=== PATIENT | female | born 1960 | race Caucasian/White ===

== ENCOUNTER → 2016-08-27 | Outpatient (CLI) | payer BC ==
[~2016-08-27] MED LIST: BCPILLS; FAMO20TA11; GLC500; IBUP-1050; LISI-461; SNG10
[2016-08-27 09:57] LABS: ESTIMATED AVERAGE GLUCOSE 103 mg/dl; HA1C FLAG Normal (Normal)
[2016-08-27 10:04] LABS: BLOOD UREA NITROGEN 20 mg/dl (7-18); BUN/CREATININE RATIO 28.2 (10-20); CALCIUM 9.2 mg/dl (8.5-10.1); CARBON DIOXIDE 24 mmol/L (21-32); CHLORIDE 109 mmol/L (98-107); CREATININE 0.71 mg/dl (0.60-1.20); GLUCOSE 92 mg/dl (70-99); POTASSIUM 4.2 mmol/L (3.5-5.1); SODIUM 143 mmol/L (136-145)
== END | disposition home or self-care (01) ==
LOC: C.LAB 07:53
DX: E11.9 Type 2 diabetes mellitus without complications (principal)

== ENCOUNTER → 2017-02-14 | Outpatient (CLI) | payer BC ==
[2017-02-14 12:09] LABS: BASO % 0.2 %; BASO ABS # 0.02 K/uL (0-0.2); COMPLETE YES; EOS % 1.9 %; HEMATOCRIT 42.5 % (37-47); IG% 0.2 %; LYMPH % 22.2 %; LYMPH ABS # 1.79 K/uL (1.2-3.4); MEAN CELL VOLUME 91.6 fL (80-100); MEAN CORPUSCULAR HGB CONC 33.9 g/dl (32-36); MEAN PLATELET VOLUME 8.7 fL (7.4-10.4); MONO % 7.6 %; NEUT % 67.9 %; PLATELET COUNT 307 K/uL (130-400); RED BLOOD COUNT 4.64 M/uL (4.2-5.4); WHITE BLOOD COUNT 8.07 K/uL (4.8-10.8)
[2017-02-14 12:33] LABS: ALT/SGPT 17 U/L (12-78); AST/SGOT 8 U/L (15-37); BLOOD UREA NITROGEN 20 mg/dl (7-18); BUN/CREATININE RATIO 22.7 (10-20); CALCIUM 9.4 mg/dl (8.5-10.1); CARBON DIOXIDE 25 mmol/L (21-32); CHLORIDE 107 mmol/L (98-107); CHOLESTEROL 151 mg/dl (0-200); CREATININE 0.86 mg/dl (0.60-1.20); GLUCOSE 93 mg/dl (70-99); POTASSIUM 4.7 mmol/L (3.5-5.1); SODIUM 140 mmol/L (136-145); TRIGLYCERIDES 90 mg/dl (0-150); VERY LOW DENSITY LIPOPROT CALC 18 mg/dl
[2017-02-14 12:39] LABS: ESTIMATED AVERAGE GLUCOSE 108 mg/dl; HA1C FLAG Normal (Normal)
[2017-02-14 12:43] LABS: CHOLESTEROL/HDL RATIO 3.8; HDL CHOLESTEROL 40 mg/dl; LDL CHOLESTEROL CALCULATED 93 mg/dl
== END | disposition home or self-care (01) ==
LOC: C.LAB 11:08
DX: E03.9 Hypothyroidism, unspecified (principal); E11.9 Type 2 diabetes mellitus without complications; E55.9 Vitamin D deficiency, unspecified

== ENCOUNTER → 2017-05-06 | Outpatient (CLI) | payer BC ==
[2017-05-06 10:00] LABS: BLOOD UREA NITROGEN 15 mg/dl (7-18); BUN/CREATININE RATIO 19.9 (10-20); CALCIUM 9.3 mg/dl (8.5-10.1); CARBON DIOXIDE 26 mmol/L (21-32); CHLORIDE 108 mmol/L (98-107); CREATININE 0.76 mg/dl (0.60-1.20); GLUCOSE 69 mg/dl (70-99); POTASSIUM 4.9 mmol/L (3.5-5.1); SODIUM 142 mmol/L (136-145)
[2017-05-06 10:09] LABS: RATIO 8.5 mcg/mg (0-30.0)
== END | disposition home or self-care (01) ==
LOC: C.LAB 07:09
DX: E11.9 Type 2 diabetes mellitus without complications (principal); E55.9 Vitamin D deficiency, unspecified

== ENCOUNTER → 2017-10-14 | Outpatient (CLI) | payer BC ==
[2017-10-14 09:34] LABS: BASO % 0.5 %; BASO ABS # 0.04 K/uL (0-0.2); EOS % 2.4 %; EOS ABS # 0.18 K/uL (0-0.5); HEMATOCRIT 41.4 % (37-47); IG# 0.02 K/uL (0.00-0.02); LYMPH % 24.5 %; LYMPH ABS # 1.85 K/uL (1.2-3.4); MEAN CORPUSCULAR HEMOGLOBIN 31.5 pg (25-34); MEAN CORPUSCULAR HGB CONC 33.8 g/dl (32-36); MEAN PLATELET VOLUME 9.3 fL (7.4-10.4); MONO % 7.4 %; MONO ABS # 0.56 K/uL (0.11-0.59); NEUT % 64.9 %; PLATELET COUNT 290 K/uL (130-400); RED CELL DISTRIBUTION WIDTH CV 13.6 % (11.5-14.5); RED CELL DISTRIBUTION WIDTH SD 46.3 fL (36.4-46.3); WHITE BLOOD COUNT 7.55 K/uL (4.8-10.8)
[2017-10-14 10:11] LABS: ALT/SGPT 17 U/L (12-78); AST/SGOT 9 U/L (15-37); BLOOD UREA NITROGEN 21 mg/dl (7-18); CALCIUM 9.2 mg/dl (8.5-10.1); CARBON DIOXIDE 27 mmol/L (21-32); CHOLESTEROL 160 mg/dl (0-200); CREATININE 0.91 mg/dl (0.60-1.20); GLUCOSE 129 mg/dl (70-99); SODIUM 141 mmol/L (136-145)
[2017-10-14 10:21] LABS: LDL CHOLESTEROL CALCULATED 101 mg/dl
== END | disposition home or self-care (01) ==
LOC: C.LAB 07:06
DX: E11.9 Type 2 diabetes mellitus without complications (principal); E78.5 Hyperlipidemia, unspecified; I10 Essential (primary) hypertension; E03.9 Hypothyroidism, unspecified

== ENCOUNTER → 2017-10-17 | Outpatient (CLI) | payer BC ==
[2017-10-21 09:08] LABS: ANA SCREEN TC 249X NEGATIVE (NEGATIVE)
== END | disposition home or self-care (01) ==
LOC: C.LAB 16:01
DX: G62.9 Polyneuropathy, unspecified (principal)

== ENCOUNTER 2020-12-13 07:55 | Observation (INO) ==
--- NOTE | 2020-11-14 15:46 | PAT Medication Instructions ---
Medication Instructions Date of Service November 14, 2020 Home Medications Medication Instructions Recorded flash glucose sensor #1 ea 10/06/20 blood sugar diagnostic #300 ea 10/27/20 famotidine 40 mg tablet 40 mg PO QPM cholecalciferol (vitamin D3) 50 mcg (2,000 unit) capsule 50 mcg PO QAM levothyroxine 100 mcg capsule 100 mcg PO QAM lisinopril 10 mg tablet 10 mg PO QAM metformin 1,000 mg tablet 1,000 mg PO BID montelukast 10 mg tablet 10 mg PO QAM rosuvastatin 5 mg tablet 5 mg PO QPM hydroxychloroquine 200 mg tablet 200 mg PO BID lutein 10 mg tablet 10 mg PO QAM pantoprazole 40 mg tablet,delayed release 40 mg PO QAM sertraline 100 mg tablet 100 - 150 mg PO QAM clonidine HCl 0.1 mg tablet 0.1 mg PO HS triamcinolone acetonide 0.5 % topical cream 1 applic TOPICAL DAILY PRN aspirin [Aspir-81] 81 mg PO QAM ibuprofen [Advil] 600 mg PO Q6H insulin glargine [Lantus Solostar U-100 Insulin] 35 unit SUBCUT QPM liraglutide [Victoza 2-Nish] 0.6 mg SUBCUT QAM Continue as directed liraglutide [Victoza 2-Nish] 0.6 mg SUBCUT QAM ASK your surgeon for instructions ibuprofen [Advil] 600 mg PO Q6H ASK your prescriber and surgeon hydroxychloroquine 200 mg tablet 200 mg PO BID STOP taking 24 hours before surgery triamcinolone acetonide 0.5 % topical cream 1 applic TOPICAL DAILY PRN DO NOT take the morning of surgery cholecalciferol (vitamin D3) 50 mcg (2,000 unit) capsule 50 mcg PO QAM lisinopril 10 mg tablet 10 mg PO QAM metformin 1,000 mg tablet 1,000 mg PO BID montelukast 10 mg tablet 10 mg PO QAM lutein 10 mg tablet 10 mg PO QAM Take morning of surgery With a small sip of water, OTHERWISE NOTHING TO EAT OR DRINK AFTER MIDNIGHT: levothyroxine 100 mcg capsule 100 mcg PO QAM pantoprazole 40 mg tablet,delayed release 40 mg PO QAM sertraline 100 mg tablet 100 - 150 mg PO QAM aspirin [Aspir-81] 81 mg PO QAM Take evening before surgery famotidine 40 mg tablet 40 mg PO QPM metformin 1,000 mg tablet 1,000 mg PO BID rosuvastatin 5 mg tablet 5 mg PO QPM clonidine HCl 0.1 mg tablet 0.1 mg PO HS insulin glargine [Lantus Solostar U-100 Insulin] 35 unit SUBCUT QPM Other Notes If you have any questions please call us at [phone] or [phone] or [phone] or [phone]
--- NOTE | 2020-11-16 08:42 | Anesthesiology Consultation ---
Date of Service November 16, 2020 Assessment & Plan (1) Encounter for pre-operative examination: - COVID screening: Per assessment on 11/16: Travel screen- Traveled to [place], [place]- returned 11/11. Rented condo with 3 people (All vaccinated). No further travel planned to surgery. 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 No known COVID-19 positive contacts or current COVID-19 related symptoms. Patient fully vaccinated. Surgeon arranging preop COVID testing. Awaiting results. - Check BSG AM DOS Chart Review Chart Review: Acceptable Risk for Surgery and Patient seen in Pre Admission Testing Teaching & Discussion Pre-Anesthesia Teaching/Discussion Notes: Instructed NPO after midnight before surgery,except medications with 15 cc of water. Medication instructions provided according to the PAT guidelines. History Surgery Operation Date: 12/13/20 09:05 Proposed Procedures p Right Total Knee Replacement - Hossein Thakkar MD Height/Weight Height: 5 ft 4 in Weight: 133.1 kg Allergies Allergy/AdvReac Type Severity Reaction Status Date / Time morphine Allergy Severe Severe Verified 11/14/20 15:47 headache pollen extracts Allergy Intermediate Pruritus, Verified 11/14/20 15:47 watery eyes, sneezing, congestion, cough Penicillins Allergy Unknown "Strong Verified 11/14/20 15:47 family history" ciprofloxacin [From Cipro] AdvReac Unknown Yeast Verified 11/14/20 10:44 infection Medications Home Medications Medication Instructions Recorded Confirmed Last Taken famotidine 40 mg tablet 40 mg PO QPM 08/02/20 11/14/20 Unknown cholecalciferol (vitamin D3) 50 50 mcg PO QAM 10/04/20 11/14/20 Unknown mcg (2,000 unit) capsule levothyroxine 100 mcg capsule 100 mcg PO QAM 10/04/20 11/14/20 Unknown lisinopril 10 mg tablet 10 mg PO QAM 10/04/20 11/14/20 Unknown metformin 1,000 mg tablet 1,000 mg PO BID tab 10/04/20 11/14/20 Unknown montelukast 10 mg tablet 10 mg PO QAM 10/04/20 11/14/20 Unknown pen needle, diabetic 32 gauge x #50 ea 10/04/20 11/02/20 Unknown " rosuvastatin 5 mg tablet 5 mg PO QPM 10/04/20 11/14/20 Unknown flash glucose sensor #1 ea 10/06/20 11/02/20 Unknown hydroxychloroquine 200 mg tablet 200 mg PO BID 10/06/20 11/14/20 Unknown pantoprazole 40 mg tablet,delayed 40 mg PO QAM 10/06/20 11/14/20 Unknown release sertraline 100 mg tablet 100 - 150 mg PO QAM 10/06/20 11/14/20 Unknown blood sugar diagnostic #300 ea 10/27/20 11/02/20 Unknown clonidine HCl 0.1 mg tablet 0.1 mg PO HS tab 10/27/20 11/14/20 Unknown triamcinolone acetonide 0.5 % 1 applic TOPICAL DAILY PRN 10/27/20 11/14/20 Unknown topical cream aspirin [Aspir-81] 81 mg PO QAM 11/14/20 11/14/20 Unknown ibuprofen [Advil] 600 mg PO Q6H 11/14/20 11/14/20 Unknown insulin glargine [Lantus Solostar 35 unit SUBCUT QPM 11/14/20 11/14/20 Unknown U-100 Insulin] liraglutide [Victoza 2-Nish] 0.6 mg SUBCUT QAM 11/14/20 11/14/20 Unknown lutein-zeaxanthin 1 cap PO DAILY 11/16/20 11/16/20 Unknown Past Medical History Medical History Anxiety Depression Diabetes type 2, controlled IDDM Dyslipidemia Gastric ulcer hx GERD (gastroesophageal reflux disease) controlled Hypertension Hypothyroidism Migraine hx Morbid obesity Rheumatoid arthritis Exercise / Class Metabolic Activity III < 4 Walking/Shop/Light housework Past Family History Family History Brother Family history of reaction to anesthesia VERY AGITATED Mother Family history of diabetes mellitus Family/Other Family history of diabetes mellitus Past Surgical History Surgical History History of cholecystectomy History of colonoscopy History of endometrial ablation Past Anesthesia History No Hx of Anesthesia Complications and No Family Hx of Anesthesia Complications (except brother (agitation with anesthesia emergence)) History of PONV No Hx of PONV and Hx of Motion Sickness (mild (boats)) Social History Smoking Status: Never smoker Do You Dip or Chew Tobacco: No Hx Alcohol Use: Yes Alcohol type: hard liquor alcohol intake frequency: holidays/special occasions only Hx Substance Use: No Review of Systems Patient denies chest pain, shortness of breath, dyspnea on exertion, fever, chills, cough, wheezing, palpitations. Physical Exam Vital Signs VITALS BP 112/72 P 65 TEMP 98.2 SP02 95%RA RESP 18 PHYSICAL Full cervical extension range of motion. Full TMJ range of motion. TMD 3.5 finger breaths Mallampati Score 2 (large tongue) Dentition: intact, root canal repair right lower side Lungs: clear throughout to auscultation Cardiac: regular rate and rhythm, no murmurs noted Spine: normal Carotid arteries: negative bruit Extremities: no edema Testing Laboratory Results 11/16/20 09:07 11/16/20 09:07 PT 9.9 Seconds (9.0-12.0) 11/16/20 09:07 INR 1.0 (0.9-1.1) 11/16/20 09:07 APTT 24.6 Seconds (21.0-31.0) 11/16/20 09:07 Hemoglobin A1c 5.9 % (4.5-5.6) H 11/16/20 09:07 Blood Type A Positive 11/16/20 09:07 Antibody Screen NEGATIVE 11/16/20 09:07 Electrocardiogram Date: 11/16/20 Findings: + NSR @ (61) Chest X-Ray Date: 11/16/20 FINDINGS: Lung volumes are normal. Lungs are clear. There is no pneumothorax or pleural effusion. There is mild cardiomegaly. Mediastinal contours are normal. There is no evidence for pulmonary edema. IMPRESSION: No acute cardiopulmonary findings. Mild cardiomegaly. Stress Test Date: 01/05/18 Type: DSE Negative exercise stress echo/ECG for ischemia at 106% MPHR. 5.3 METS. No significant valvular disease. EF 55 to 60%. Borderline DOMO.
--- NOTE | 2020-11-16 09:35 | XRay Report ---
XR chest Pre-admission PA/Lat CLINICAL HISTORY: Preoperative evaluation. COMPARISON STUDY: Chest radiograph January 04, 2018. FINDINGS: Lung volumes are normal. Lungs are clear. There is no pneumothorax or pleural effusion. The re is mild cardiomegaly. Mediastinal contours are normal. There is no evidence for pulmonary edema. IMPRESSION: No acute cardiopulmonary findings. Mild cardiomegaly. ACT 112: Negative or not required by law. Electronically signed by: Fuentes Serna M.D. 11/16/2020 9:34 AM
[2020-11-16 10:47] LABS: BUN Creatinine Ratio 19.3 (10-20); Calcium 9.3 mg/dl (8.5-10.1); Creatinine Clr Calc Pharmacy 105.6 ml/min; Est GFR (African American) 98.1; Est GFR (Non-African American) 84.7; Potassium 4.9 mmol/L (3.5-5.1)
[2020-11-16 10:48] LABS: Basophils # (auto) 0.03 K/uL (0-0.2); Basophils % (auto) 0.3 %; Eosinophils # (auto) 0.21 K/uL (0-0.5); Eosinophils % (auto) 2.4 %; Hematocrit (blood only) 36.8 % (37-47); Hemoglobin 12.3 g/dL (12.0-16.0); Immature Granulocytes # (auto) 0.02 K/uL (0.00-0.02); Immature Granulocytes % (auto) 0.2 %; Lymphocytes # (auto) 1.58 K/uL (1.2-3.4); Mean Corpuscular Hemoglobin 30.8 pg (25-34); Mean Corpuscular Hgb Conc 33.4 g/dL (32-36); Mean Corpuscular Volume 92.2 fL (80-100); Mean Platelet Volume 9.4 fL (7.4-10.4); Neutrophils # (auto) 6.23 K/uL (1.4-6.5); Neutrophils % (auto) 71.1 %; Platelet Count 278 K/uL (130-400); RDW Coefficient of Variation 13.9 % (11.5-14.5); RDW Standard Deviation 46.9 fL (36.4-46.3); Red Blood Count 3.99 M/uL (4.2-5.4); White Blood Count 8.77 K/uL (4.8-10.8)
[2020-11-16 10:53] LABS: Partial Thromboplastin Ratio 0.9; Partial Thromboplastin Time 24.6 Seconds (21.0-31.0); Prothrombin Time 9.9 Seconds (9.0-12.0)
[2020-11-16 10:54] LABS: Estimated Average Glucose 123 mg/dl; Hemoglobin A1C 5.9 % (4.5-5.6)
--- NOTE | 2020-11-17 06:28 | Electrocardiogram Report ---
Test Reason : Blood Pressure : / mmHG Vent. Rate : 061 BPM Atrial Rate : 061 BPM P-R Int : 158 ms QRS Dur : 080 ms QT Int : 424 ms P-R-T Axes : 059 009 039 degrees QTc Int : 426 ms Normal sinus rhythm Normal ECG When compared with ECG of 05-JAN-2018 06:38, No significant change was found Confirmed by Kareem Collier ([id number]) on 11/17/2020 6:27:44 AM Referred By: Hossein Thakkar Confirmed By:Kaerem Collier
--- NOTE | 2020-12-07 21:20 | History and Physical Report ---
DATE OF ADMISSION: 12/13/2020 CHIEF COMPLAINT: Bilateral knee pain and discomfort, right side greater than left. HISTORY OF PRESENT ILLNESS: The patient is a 60-year-old female referred by my partner, Dr. Yap, for treatment of her knees. She has got a 6-8 month history of markedly increasing bilateral knee pain and discomfort, right side worse than the left. She had an injection, which helped for about 4 weeks. Pain is increased with weightbearing. She pretty much limps all the time. Gets more sore and tired at the end of the day. Takes Advil with little relief. It gives out intermittently. She would like to have her knees fixed. PAST MEDICAL HISTORY: Significant for, 1. Diabetes x15 years with an A1c of 5.9. 2. Hypertension. 3. Anxiety/depression. 4. Sleep apnea. 5. Hypothyroidism. 6. Obesity with BMI of 50. 7. Gastroesophageal reflux disease. 8. Low back pain/sciatica. PAST SURGICAL HISTORY: Includes, 1. Cholecystectomy. 2. Uterine ablation. ALLERGIES: MORPHINE, WHICH CAUSES A HEADACHE. ALSO DESCRIBES ALLERGIES TO PENICILLIN AND CIPRO. CURRENT MEDICATIONS: Include, 1. Aspirin 81 mg. 2. Vitamin D3. 3. Clonidine. 4. Famotidine. 5. Hydroxychloroquine. 6. Insulin. 7. Levothyroxine. 8. Victoza. 9. Lisinopril. 10. Lutein. 11. Metformin. 12. Singulair. 13. Crestor. 14. Sertraline. 15. Triamcinolone topical cream. SOCIAL HISTORY: A 60-year-old female. Lives in [place]. She has a domestic partner. Rare alcohol intake. No children. FAMILY HISTORY: Significant for heart disease. REVIEW OF SYSTEMS: Negative for diabetes. Denies any chest pain or shortness of breath. No history of DVT or PE. No known bleeding problems. PHYSICAL EXAMINATION GENERAL: Shows a pleasant middle-aged female. HEENT: Benign. NECK: Supple, no lymphadenopathy. LUNGS: Clear to auscultation. HEART: Regular rate and rhythm. ABDOMEN: Soft, nontender, nondistended. EXTREMITIES: Grossly neurovascularly intact except as follows: Examination of both knees reveals the patient ambulates with a bit of a limp. Examination of the right knee reveals a large soft tissue envelope. Fairly neutral alignment to her knee. Tender over the medial joint line. Range of motion 5-125. No instability. No pain with hip motion. X-RAYS: X-rays of the right knee were reviewed. It shows advanced right knee DJD. She has complete loss of the medial joint space. She has got a tibial femoral subluxation. She has got osteophytes primarily medially, but some lateral compartment osteophytes. Mild to moderate patellofemoral disease. ASSESSMENT: A 60-year-old female with multiple comorbidities including underlying diabetes, hypertension, hypothyroidism, obesity, gastroesophageal reflux disease and sciatica with advanced right knee degenerative joint disease. She has failed conservative measures. She would like to have her right knee fixed. PLAN: We will take her to the operating room and do right total knee replacement. The risks and benefits of this procedure were explained to the patient and include but not limited to DVT, PE, , infection, neurological injury, vascular injury, bleeding problem, pain, limited range of motion, stiffness, failure to relieve her symptoms, incomplete relief of symptoms, need for further surgery in the future, fracture, leg length inequality, nerve palsy, need for blood transfusion, etc. The patient understands and desires to proceed. Informed consent was obtained. We will need to hold her metformin and lisinopril on the morning of surgery. She is planning to be discharged home using [facility] home health program. She does have a domestic partner who can help with her care.
[~2020-12-13 07:55] MED LIST changes: +ACETAMINOPHEN 500 MG TAB PO SCH; -BCPILLS; +BUPIVACAINE 0.25% 30 ML VIAL ONE; +BUPIVACAINE 0.5 % 5 MG/1 ML PF 10ML VIAL ONE; +BUPIVACAINE LIPOSOME/PF 266 MG, BUPIVACAINE/EPINEPHRINE 50 ML, SODIUM CHLORIDE 0.9% 30 ... INFIL SCH; -FAMO20TA11; +FAMOTIDINE 20 MG TAB PO SCH; +GABAPENTIN 600 MG DOSE PO SCH; -GLC500; -IBUP-1050; -LISI-461; +LR 500ML BOLUS, THEN 15ML/HR IV SCH; +LR 60ML/HR IV SCH; -SNG10; +Scopolamine 1 MG TDSY TD SCH; +TRANEXAMIC ACID 1,000 MG **IV Intra-op IV SCH
--- NOTE | 2020-12-13 08:51 | History & Physical Bridge Note ---
Date of Service December 13, 2020 History & Physical Bridge Note I have examined the patient, reviewed the History & Physical and in the interval since the performance of the History & Physical I have noted the following changes of clinical significance: no changes noted
[2020-12-13] MEDS ORDERED: MIDAZOLAM HCL 1 MG/ML 2ML VIAL ONE ×2 (09:19)
[2020-12-13] MEDS ORDERED: fentaNYL citrate 100 MCG/2 ML VIAL IV PRN (09:37)
[2020-12-13] MEDS ORDERED: ATROPINE SULFATE 0.1 MG/ML 10ML SYR IV PRN (09:37)
[2020-12-13] MEDS ORDERED: ONDANSETRON INJ 2 MG/ML 2 ML VIAL IV PRN ×2 (09:37→13:50)
[2020-12-13] MEDS ORDERED: ePHEDrine sulfate 50 MG/ML AMP IV PRN (09:37)
[2020-12-13] MEDS ORDERED: BUPIVACAINE LIPOSOME 1.3% 266 MG/20 ML VIAL ONE (10:15)
[2020-12-13] MEDS ORDERED: EPINEPHrine INJ 1 MG/ML AMP ONE (10:17)
[2020-12-13] MEDS ORDERED: BUPIVACAINE 0.25% 30 ML VIAL ONE ×2 (10:17→10:25)
[2020-12-13] MEDS ORDERED: SODIUM CHLORIDE 0.9% PF 50 ML VIAL ONE (10:26)
[2020-12-13] MEDS ORDERED: PHENYLEPHRINE 100MCG/ML 5ML SYR ONE (10:59)
[2020-12-13] MEDS ORDERED: ePHEDrine sulfate 50 MG/ML SYR ONE (10:59)
[2020-12-13] MEDS ORDERED: LIDOCAINE HCL 2% 2 ML VIAL/AMP(20MG/ML) INFIL ONE (10:59)
[2020-12-13] MEDS ORDERED: PROPOFOL IV EMULSION 10 MG/ML 20 ML VIAL IV ONE ×2 (10:59→11:47)
--- NOTE | 2020-12-13 12:21 | Post Operative Brief Note ---
PG Immediate Post Op with CF Date of Surgery December 13, 2020 Pre & Post Diagnosis Operation Date: 12/13/20 10:05 Pre-Op Diagnosis: Right Knee Osteoarhritis Post-Op Diagnosis: Right Knee Osteoarhritis I identified the patient and participated in the time-out.: Yes Procedure Operation Date: 12/13/20 10:05 Actual Procedures p Right Total Knee Replacement(Right) - Hossein Thakkar MD Surgeon Hossein Thakkar MD Debarker Operator ANNY Mathew Estimated Blood Loss 50 Findings Consistent with Post-Op Diagnosis Fluids 1700 cc Specimens Specimen Description: A) Right knee- bone & tissue Drains Gaspar Catheter Anesthesia Type Spinal MAC Complications none Disposition Accompanied Patient To Recovery: No Disposition: Recovery Room
--- NOTE | 2020-12-13 13:10 | XRay Report ---
XR knee RT 1 or 2V routine CLINICAL HISTORY: Surgical Post Op COMPARISON: None. DISCUSSION: There are postsurgical changes of a total right knee arthroplasty and patellar resurfacin g. No acute fractures are visualized. There is an old proximal fibular deformity. There are overlying skin rory. There is gas within the soft tissues consistent with recent surgery. The femoral and t ibial components appear well seated. IMPRESSION: Postsurgical changes of a total right knee arthroplasty. ACT 112: Negative or not required by law. Electronically signed by: Ryan Branch M.D. 12/13/2020 1:09 PM
--- NOTE | 2020-12-13 13:23 | Anesthesiology Progress Note ---
Date of Service December 13, 2020 Anesthesia Post Procedure Vital Signs Vital Signs: Temp Pulse Pulse Resp BP BP Pulse Ox 12/13/20 13:05 59 L 16 140/69 98 12/13/20 12:55 58 L 16 120/71 99 12/13/20 12:45 36.4 C L 60 16 148/64 H 98 12/13/20 12:35 61 16 140/53 L 98 12/13/20 12:25 71 16 130/64 100 12/13/20 12:19 36.2 C L 75 16 116/56 L 100 12/13/20 08:29 36.6 C 65 18 116/50 L 95 Pain Intensity Right Knee: Pain Intensity: 2 Transfer of Care Handoff Completed per policy Notes Mental Status: alert / awake / arousable and participated in evaluation Patient Amnestic to Procedure: Yes Nausea / Vomiting: adequately controlled Pain: adequately controlled Airway Patency, RR, SpO2: stable & adequate BP & HR: stable & adequate Hydration State: stable & adequate Neuraxial Anesthesia: was administered and sensory block is resolving Anesthetic Complications: no major complications apparent and Pt Satisfied with anesthetic care
[2020-12-13] MEDS: SODIUM CHLORIDE 0.9% 1000ML 1,000 ML IV SCH ×2 (13:40→20:33)
[2020-12-13] MEDS ORDERED: METOCLOPRAMIDE HCL INJ 5 MG/ML 2 ML VIAL IV PRN (13:50)
[2020-12-13] MEDS ORDERED: bisacodyL 10 MG SUPP PR PRN (13:50)
[2020-12-13] MEDS ORDERED: GLUCAGON FOR INJ 1 MG VIAL SQ PRN (13:50)
[2020-12-13] MEDS ORDERED: MAGNESIUM HYDROXIDE SUSP 30 ML UDC PO PRN (13:50)
[2020-12-13] MEDS ORDERED: TRIAMCINOLONE ACET 0.5% CR 15 GM TUBE TOP PRN (13:50)
[2020-12-13] MEDS ORDERED: oxyCODONE HCL IR 5 MG TAB (IMMEDIATE RELEASE) PO PRN (13:50)
[2020-12-13] MEDS ORDERED: diphenhydrAMINE Capsule 25 MG CAP PO PRN (13:50)
[2020-12-13] MEDS ORDERED: CARBOHYDRATES FOR HYPOGLYCEMIA PO PRN (13:50)
[2020-12-13] MEDS ORDERED: NALOXONE HCL 0.4 MG/1 ML VIAL/CARP IV PRN (13:50)
[2020-12-13] MEDS ORDERED: ALUMINUM/MAGNESIUM SUSP 30 ML UDC PO PRN (13:50)
[2020-12-13] MEDS ORDERED: DEXTROSE 50% 50 ML SYRINGE IV PRN (13:50)
[2020-12-13] MEDS ORDERED: GLUCOSE 10 TABS/TUBE PO PRN (13:50)
[2020-12-13] MEDS ORDERED: GLUCOSE 40% GEL 15 GM TUBE PO PRN (13:50)
[2020-12-13] MEDS ORDERED: PHARMACY GLYCEMIC MGMT CONSULT PRN (14:26)
--- NOTE | 2020-12-13 15:00 | Pharmacy Report ---
Pharmacy Glycemic Short Note 2 - Date of Service December 13, 2020 - Glycemic Short BSG Results (Last 24 hours): 12/13/20 12/13/20 08:19 12:25 POC Glucose 100 H 72 OUTPATIENT ANTIDIABETIC REGIMEN: * Lantus 35 units SQ qPM * Victoza 0.6mg SQ qAM * HbA1c: 5.9% (11/16/20) ASSESSMENT: * Ms Green is a 60yo diabetic female, POD 0 s/p R TKA w/ Dr Thakkar. * Pt does not appear to have received any steroids intraoperatively. * Pt is managed on once-daily basal insulin at home, along with victoza. * Will attempt to keep on once-daily insulin during admission, for ease of transition at discharge. Novolog added to cover hyperglycemia, should BSGs rise. PLAN FOR INPATIENT GLYCEMIC CONTROL: * Hold Victoza * Basal insulin * Lantus 30 units SQ qHS (~15% dose reduction from home dose, as BSGs 100, 72 so far today and A1c 5.9%) * Bolus insulin * NovoLog per scale ACHS or Q6hrs while NPO * Goal Range: Low 120 mg/dL - High 160 mg/dL * Correction Factor: 40 mg/dL/unit * Nutritional / Prandial insulin: none at this time - will be provided by Lantus PLAN FOR DISCHARGE: * A1c: 5.9% * This indicates excellent glycemic control. Expect that pt may resume home regimen on discharge, as long as she does not report having episodes of hypoglycemia.
[2020-12-13] MEDS: KETOROLAC 30 MG/ML VIAL IV SCH ×2 (15:27→18:25)
[2020-12-13] MEDS: ACETAMINOPHEN 500 MG TAB PO SCH ×2 (15:27→21:23)
[2020-12-13] MEDS: Scopolamine CHECK PATCH PLACEMENT SCH (15:28)
[2020-12-13] MEDS: FERROUS GLUCONATE 324 MG TAB PO SCH (16:49)
[2020-12-13] MEDS: ASCORBIC ACID 500 MG TAB PO SCH (16:49)
[2020-12-13] MEDS: INSULIN ASPART 100 UNITS/ML 3 ML PEN SC SCH ×2 (17:10→21:21)
[2020-12-13] MEDS: ceFAZolin 2000MG 2,000 MG/15 ML SYR IV SCH (17:54)
--- NOTE | 2020-12-13 18:12 | Operative Report ---
Post Operative Report Pre & Post Diagnosis Operation Date: 12/13/20 10:05 Pre-Op Diagnosis: Right Knee Osteoarhritis Post-Op Diagnosis: Right Knee Osteoarhritis I identified the patient and participated in the time-out.: Yes Procedure Operation Date: 12/13/20 10:05 Actual Procedures p Right Total Knee Replacement(Right) - Hossein Thakkar MD Surgeon Hossein Thakkar MD Hand Miter Operator ANNY Mathew Estimated Blood Loss 50 Findings Consistent with Post-Op Diagnosis Operative findings revealed advanced right knee DJD. She had grade 4 [id number] disease all 3 compartments most severe in the medial side. She had varus deformity to her knee. Very large soft tissue envelope. Moderate-sized joint effusion. Osteophytes in all 3 compartments. Fluids 1700 cc Specimens Right knee sent for pathology. Drains None. Anesthesia Type Spinal MAC Complications none Disposition Accompanied Patient To Recovery: No Disposition: Recovery Room Indications Patient is a 61-year-old female whose had a several year history of increasing right knee pain discomfort. Is been through extensive conservative treatment which became less successful over time. X-rays were advanced right knee DJD. She elected for surgical treatment. Of note, the patient is morbidly obese with a BMI 50 which made this surgery slightly more difficult and required more time to complete. Description of Procedure Operative implants consist of: 1. Biomet Vanguard size 62.5 right posterior stabilized femoral component. 2. Biomet size 67 tibial tray. 3. 10 mm posterior stabilized polyethylene insert. 4. 31 x 8 all polypatella. The patient was taken to the operating, identified, placed on the operating table supine position protectors were properly padded. IV antibiotics tried by anesthesia team. A spinal anesthetic and abductor canal block had been applied in the holding area. Gaspar catheter was placed in sterile fashion. Right thigh turn was then placed in the right lower extremities and prepped and draped in usual sterile fashion. The right leg was elevated exsanguinated with use of an Esmarch interspace at 300 mmHg. An anterior approach to the right knee was then performed to longitudinal incision centered over the patella. Sharp dissection got through subcutaneous this down the extensor mechanism. A medial parapatellar arthrotomy incision was made. Some subperiosteal dissection was carried out medially. The fat pad was dissected from each patella tendon. Lateral patellofemoral ligament was released. Patella was subluxated laterally and the knee was flexed. The osteophytes were taken off distal femur. The ACL and PCL were then released from distal femur the tibia subluxated anteriorly. The external tibial alignment and placed on the anterior face of the tibia and adjusted 14 mm medially. Proximal tibial cut was made to remove 2 mm of bone from the most deficient aspect medial tibial plateau. The tibia size a size 67. Attention drawn the femur. The distal femur with a sharp drill bit intramedullary canal was suction. A right 5 degree valgus cutting guide was placed. The distal femoral cutting block was pinned in place. Distal femoral cut was made to take an additional 3 mm of bone off distal femur. Femur was then sized to a size 62.5. The 8 cutting block was pinned parallel to the epicondylar axis which was 3 degrees of external rotation. Anterior cut, anterior chamfer, posterior cut, posterior ch amfer cuts were made. Box cutting guide was placed in just slight. The box cut was made to the knee was flexed. The remnants of the medial and lateral menisci were excised. The osteophytes were taken off the posterior aspect the femur. A trial femoral component was placed but the tibial tray was pinned in maximum external rotation and the drill and stem punch were used to create defect in pro ximal tibia for the tibial tray. The knee was then trialed and the 10 mm insert fit most appropriately. Attention drawn the patella. Patella was cleaned of all soft tissues. Patella thickness measured 20 mm in thickness was cut down to 13. Was sized to a size 31 patella. The lug holes were drilled for 31 patella. The lateral osteophyte was removed. Patella button was placed. Knee was taken through range of motion patella tracked nicely with no thumbs test. Attention drawn to place the permanent components. Nupathe all trial components were removed. Bone plug was placed in the distal femur limit blood loss. Double batch Palacos G cement was mixed. A Biomet Vanguard size 62.5 right posterior stabilized femoral component, size 67 tibial tray, 10 mm posterior stabilized polyethylene insert, 31 x 8 all polypatella then cemented in place. The knee was brought out into full extension until cement hardened. Final cement checkup then performed. Pericapsular tissues were injected with total 100 cc of combination of 20 cc cc of Exparel, 30 cc normal saline, 50 cc of quarter percent Marcaine with epinephrine. Patient did receive 1 g tranexamic acid per the turn was then let down for final tourniquet time of 55 minutes. Hemostasis assured use electrocautery. The extensor mechanism closed with combination 1 PDS suture #1 Vicryl suture in [id number] fashion. Extensor mechanism checked found to be intact the subcutaneous tissue then closed with 2 Dexon suture in a buried knot fashion skin was closed skin rory. Leg was then cleaned dried a sterile dressing both Xeroform, 4 x 4's, sterile cast padding, Bobby bandage were applied. Patient then transferred to the recovery room in stable condition. Patient tolerated procedure well there are no complications. Lorenzo Mathew, my physician office assistant receptionist, was present for the entire procedure. His assistance was essential and required for appropriate patient positioning, prepping and draping, surgical exposure, performing the technical details of the operation, placement the implants, closure of the wound, and placement of the sterile bandage. I attest to the content of the Intraoperative Record and any orders documented therein. Any exceptions are noted below.
[2020-12-13] MEDS ORDERED: TRANEXAMIC ACID / 0.7% NACL 1,000 MG/100 ML BAG IV SCH (18:15)
[2020-12-13] MEDS: HYDROXYCHLOROQUINE SULFATE 200 MG TAB PO SCH (20:43)
[2020-12-13] MEDS: TAPENTADOL HCL ER 50 MG TABCR PO SCH (20:43)
[2020-12-13] MEDS: DOCUSATE SODIUM 100 MG CAP PO SCH (20:44)
[2020-12-13] MEDS: ASPIRIN 81 MG ECTAB PO SCH (20:45)
[2020-12-13] MEDS ORDERED: INSULIN GLARGINE SOLOSTAR 100 UNITS/ML 3 ML PEN SQ SCH (21:00)
[2020-12-13] MEDS ORDERED: SENNA 8.6 MG TAB PO SCH (21:00)
[2020-12-13] MEDS ORDERED: cloNIDine HCL 0.1 MG TAB PO SCH (21:00)
[2020-12-13] MEDS ORDERED: ROSUVASTATIN CALCIUM 5 MG TAB PO SCH (21:00)
[2020-12-13] MEDS ORDERED: FAMOTIDINE 40 MG TABLET PO SCH (21:00)
[2020-12-13] MEDS: HYDROmorphone INJ 0.5 MG/0.5 ML SYR IV PRN (21:31)
[2020-12-14] MEDS: KETOROLAC 30 MG/ML VIAL IV SCH ×3 (00:08→13:32)
[2020-12-14] MEDS: Scopolamine CHECK PATCH PLACEMENT SCH ×2 (00:59→09:10)
[2020-12-14] MEDS: HYDROmorphone INJ 0.5 MG/0.5 ML SYR IV PRN ×2 (01:56→11:05)
[2020-12-14] MEDS: ceFAZolin 2000MG 2,000 MG/15 ML SYR IV SCH (01:57)
[2020-12-14] MEDS: SODIUM CHLORIDE 0.9% 1000ML 1,000 ML IV SCH (03:30)
[2020-12-14] MEDS: ACETAMINOPHEN 500 MG TAB PO SCH ×2 (05:48→13:31)
[2020-12-14 06:03] LABS: Hemoglobin 10.4 g/dL (12.0-16.0); Mean Corpuscular Hgb Conc 33.5 g/dL (32-36); Mean Corpuscular Volume 92.5 fL (80-100); Platelet Count 227 K/uL (130-400); RDW Coefficient of Variation 13.7 % (11.5-14.5); RDW Standard Deviation 46.4 fL (36.4-46.3); Red Blood Count 3.35 M/uL (4.2-5.4); White Blood Count 8.37 K/uL (4.8-10.8)
[2020-12-14] MEDS ORDERED: LEVOTHYROXINE SODIUM 100 MCG TABLET PO SCH (06:30)
[2020-12-14 06:38] LABS: BUN Creatinine Ratio 18.1 (10-20); Creatinine Clr Calc Pharmacy 88.8 ml/min; Est GFR (African American) 78.9 ml/min; Est GFR (Non-African American) 68.1 ml/min; Potassium 3.9 mmol/L (3.5-5.1)
--- NOTE | 2020-12-14 08:02 | Progress Notes ---
DATE: 12/14/2020 SUBJECTIVE: A 60-year-old white female postop day 1 from right knee replacement. She is doing okay. Mostly just quad pain. She had a reasonable night. No chest pain or shortness of breath. Not feeling dizzy or lightheaded. Seems to be doing okay with the pain pills. OBJECTIVE: VITAL SIGNS: Temperature 36.6. Vital signs stable. GENERAL: Shows a pleasant, middle-aged female. She is sitting up in bed, looks reasonably comfortable this morning. EXTREMITIES: Examination of the right leg reveals the dressing to be clean, dry and intact. Leg is well aligned. She can dorsiflex and plantarflex her foot appropriately. She is neurologically intact. LABORATORY DATA: Hemoglobin 10.4. Hematocrit 31.0. Electrolytes are stable. ASSESSMENT: A 60-year-old white female postop day 1 from right knee replacement, doing pretty well. Pain is controlled. She is neurologically intact. PLAN: 1. DVT prophylaxis including thigh-high TEDs, SCDs, and aspirin twice a day. 2. PT/OT. Weight bear as tolerated. Right total knee protocol. 3. Pain control, doing okay with current pain regimen. 4. Disposition: Plan to discharge to home with some home health likely later today if she does okay in therapy and pain controlled.
[2020-12-14] MEDS ORDERED: MULTIVITAMIN TAB PO SCH (09:00)
[2020-12-14] MEDS ORDERED: lisinopril 10 MG TAB PO SCH (09:00)
[2020-12-14] MEDS ORDERED: CHOLECALCIFEROL 1,000 UNITS 25 MCG TAB PO SCH (09:00)
[2020-12-14] MEDS ORDERED: MONTELUKAST SODIUM 10 MG TABLET PO SCH (09:00)
[2020-12-14] MEDS ORDERED: PANTOprazole 40 MG TAB PO SCH (09:00)
[2020-12-14] MEDS ORDERED: SERTRALINE HCL 100 MG TABLET PO SCH (09:00)
[2020-12-14] MEDS ORDERED: LUTEIN ZEAXANTHIN PO SCH (09:00)
[2020-12-14] MEDS: ASCORBIC ACID 500 MG TAB PO SCH (09:09)
[2020-12-14] MEDS: FERROUS GLUCONATE 324 MG TAB PO SCH (09:10)
[2020-12-14] MEDS: DOCUSATE SODIUM 100 MG CAP PO SCH (09:11)
[2020-12-14] MEDS: ASPIRIN 81 MG ECTAB PO SCH (09:11)
[2020-12-14] MEDS: HYDROXYCHLOROQUINE SULFATE 200 MG TAB PO SCH (09:12)
[2020-12-14] MEDS: TAPENTADOL HCL ER 50 MG TABCR PO SCH (09:18)
[2020-12-14] MEDS: INSULIN ASPART 100 UNITS/ML 3 ML PEN SC SCH ×2 (09:22→13:11)
[2020-12-14] MEDS ORDERED: INSULIN GLARGINE SOLOSTAR 100 UNITS/ML 3 ML PEN SQ SCH (21:00)
--- NOTE | 2020-12-19 06:26 | Discharge Summary ---
Date of Service December 19, 2020 Discharge Data Procedures Performed Operation Date: 12/13/20 10:05 Actual Procedures p Right Total Knee Replacement(Right) - Hossein Thakkar MD Hospital Course (1) Status post total right knee replacement: This patient is a 60 year old female admitted on 12/13/20 and underwent total knee arthroplasty. She tolerated the procedure well and there were no complications. Transferred to the PACU post op and later to the orthopedic floor for further care. SHe was given ancef for antibiotic prophylaxis. She was also given LAURA stockings, SCDs, and aspirin for DVT prophylaxis. Hemoglobin, hematocrit, and vital signs were monitored during her hospital stay and remained stable. Did not require any blood transfusions. There were no complications du ring her hospital stay. By post op day #1 the patient was tolerating a diabetic diet, pain was reasonably controlled with oral pain medicine, and she was participating in physical therapy. On post op day #1 the patient was discharged home and set up with home health care. She was given printed discharge instructions including prescriptions for extra strength tylenol, aspirin, and oxycodone. Continue physical therapy, weight bearing as tolerated. Continue LAURA stockings. Follow up approximately 2 weeks post op or sooner if there are problems or concerns. Coding Level of Care Code None Diagnoses Status post total right knee replacement Z96.651
== END 2020-12-14 16:59 | disposition home health service (06) ==
LOC: ASU 07:55 → 3W 07:55